=== PATIENT | female | born 1990 | race Caucasian/White ===

== ENCOUNTER 2017-03-20 18:08 | Inpatient (IN) | payer MEDICAID, OTHER ==
[~2017-03-20] VITALS: Ht 162.6 cm; Wt 60.1 kg
[~2017-03-20 18:08] MED LIST: IBUP-1222 PO; OXYC5TAB3 PO; PREN1TAB60 PO
[2017-03-20] MEDS ORDERED: SODIUM CHLORIDE FLUSH 10ML SYR IVF ONE (19:00)
[2017-03-20] MEDS ORDERED: ONDANSETRON 2MG/ML, 2ML IVPush ONE (19:00)
[2017-03-20] MEDS ORDERED: SODIUM CHLORIDE 0.9% 1,000ML IVBOLUS ONE (19:00)
[2017-03-20 19:27] LABS: HEMATOCRIT 38.3 % (34.6-47.8); HEMOGLOBIN 12.9 g/dL (11.7-16.4); WHITE BLOOD COUNT 10.5 x10^3/uL (3.4-10)
[2017-03-20 19:32] LABS: BLOOD UREA NITROGEN 8 mg/dL (7-18)
[2017-03-20] MEDS ORDERED: ONDANSETRON 2MG/ML, 2ML ONE ×2 (20:33→21:40)
[2017-03-20] MEDS ORDERED: MORPHINE SULFATE 4 MG/ML, 1ML ONE ×2 (20:43→21:09)
[2017-03-20] MEDS: MORPHINE SULFATE 4 MG/ML, 1ML IVPush PRN ×2 (20:49→21:12)
[2017-03-20] MEDS ORDERED: HYDROmorphone 1 MG/ML, 1ML ONE (21:03)
[2017-03-20] MEDS ORDERED: FENTANYL PF 100 MCG/2ML ONE ×3 (21:16→22:53)
[2017-03-20] MEDS ORDERED: MIDAZOLAM 1 MG/ML, 2ML ONE (21:16)
[2017-03-20] MEDS ORDERED: OXYcodone 5 MG/5 ML ORAL.SOL UDC PO PRN (21:30)
[2017-03-20] MEDS ORDERED: HYDROmorphone 1 MG/ML, 1ML IV PRN (21:30)
[2017-03-20] MEDS ORDERED: FENTANYL PF 100 MCG/2ML IV PRN (21:30)
[2017-03-20] MEDS ORDERED: PROMETHAZINE 25 MG/ML, 1ML IV PRN (21:30)
[2017-03-20] MEDS ORDERED: ONDANSETRON 2MG/ML, 2ML IVPush PRN (21:30)
[2017-03-20] MEDS ORDERED: BUPIVACAINE/PF 0.25% ONE (21:31)
[2017-03-20] MEDS ORDERED: GLYCOPYRROLATE 0.2MG/1ML ONE (21:40)
[2017-03-20] MEDS ORDERED: DEXAMETHASONE 4 MG/ML, 5ML ONE (21:40)
[2017-03-20] MEDS ORDERED: PROPOFOL 10 MG/ML, 20ML ONE (21:40)
[2017-03-20] MEDS ORDERED: NEOSTIGMINE 1 MG/ML, 10ML ONE (21:40)
[2017-03-20] MEDS ORDERED: CEFAZOLIN 1,000 MG ONE (21:40)
[2017-03-20] MEDS ORDERED: ROCURONIUM 10 MG/ML ONE (21:40)
[2017-03-20] MEDS ORDERED: BUPIVACAINE/PF 0.25% IM ONE (22:31)
[2017-03-20] MEDS ORDERED: ACETAMINOPHEN 650 MG/20.3 ML UDC ONE (22:53)
[2017-03-20] MEDS ORDERED: OXYcodone 5 MG/5 ML ORAL.SOL UDC ONE (22:53)
[2017-03-20] MEDS ORDERED: ACETAMINOPHEN 325 MG TABLET PO PRN (23:30)
[2017-03-20 23:55] VITALS: BP 116/70
[2017-03-21] MEDS ORDERED: IBUPROFEN 600 MG TABLET PO PRN (00:30)
[2017-03-21] MEDS ORDERED: ONDANSETRON 2MG/ML, 2ML IV PRN (00:30)
[2017-03-21] MEDS ORDERED: HYDROcodone/APAP 5/325 TABLET PO PRN (00:30)
[2017-03-21 00:39] VITALS: BP 116/70
[2017-03-21 04:01] VITALS: BP 110/57
== END 2017-03-21 06:30 | disposition home or self-care (01) | DRG 777 ==
LOC: ED 21:01 → EDIP 21:06 → ED 21:25 → 4NOR 23:52
PROVIDERS: ADMIT Obstetrics & Gynecology; ATTEND Obstetrics & Gynecology
PROC: 0W9G4ZZ Drainage of Peritoneal Cavity, Percutaneous Endoscopic Approach (ICD-10-PCS; principal; 2017-03-20 21:50)
DX: O00.90 Unspecified ectopic pregnancy without intrauterine pregnancy (principal); K66.1 Hemoperitoneum; F17.200 Nicotine dependence, unspecified, uncomplicated
CPT/HCPCS: 36415; 76830; 80048; 82040; 84702; 85025; 86850; 86900; 86901; 96361; 96374; J0690; J1100; J2250; J2405; J2704; J2710; J3010; J3490; J7030